=== PATIENT | female | born 1985 | race Caucasian/White ===

== ENCOUNTER 2019-04-06 11:44 | Outpatient (CLI) | payer MEDICAID ==
[2019-04-06 12:16] LABS: APPEARANCE,URINE SLIGHTLY-CLOUDY; BILIRUBIN,URINE NEGATIVE (NEGATIVE); COLOR,URINE YELLOW; GLUCOSE, URINE NEGATIVE (NEGATIVE); KETONES,URINE NEGATIVE (NEGATIVE); LEUKOCYTE ESTERASE,URINE TRACE (NEGATIVE); NITRITE,URINE NEGATIVE (NEGATIVE); PROTEIN,URINE 30 mg/dL (NEGATIVE); URINE SPECIFIC GRAVITY 1.016; UROBILINOGEN,URINE NEGATIVE mg/dL (<2.0)
[2019-04-06] MEDS ORDERED: RINGERS SOLUTION,LACTATED 1,000 ML IV ONE (12:27)
[2019-04-06 12:32] LABS: URINE AMPHETAMINES SCREEN NEGATIVE; URINE BARBITURATES SCREEN NEGATIVE; URINE BENZODIAZEPINES SCREEN NEGATIVE; URINE COCAINE SCREEN NEGATIVE; URINE MARIJUANA (THC) SCREEN NEGATIVE; URINE METHADONE SCREEN NEGATIVE; URINE PHENCYCLIDINE SCREEN NEGATIVE
--- NOTE | 2019-04-06 14:28 | Non Stress Test Report ---
Non Stress Test Datetime Report Generated by CPN: 04/06/2019 14:28 DEMOGRAPHIC EGA NST: 37.2 INDICATION Indication for Study: Ordered by Provider Indication for Study (NST) Other: LC VITAL SIGNS Temperature - NST: 97.9 Pulse - NST: 81 RESP - NST: 16 NBPSYS NST: 122 NBPDIA NST: 71 MONITORING Monitor Explained: Monitor Explained; Test Explained; Patient Verbalized Understanding Time on Monitor: 04/06/2019 12:00 Time off Monitor: 04/06/2019 14:12 NST Duration: 132 NST INTERVENTIONS NST Interventions: IV Fluids Physician Notified NST: A Quiroz CNM BABY A: [id number] BABY A Movement : Present Contraction Frequency : irritability FHR Baseline : 140 Accelerations : 15X15 Decelerations : None Variability : Moderate 6-25bpm NST Review: Meets Criteria for Reactive NST NST Review and Verified By : R Aquiles RN NST Results: Reactive NST COMMENTS NST Comments: provider on unit reviewing entire fht strip NST REPORT Report Trigger: Send Report
== END 2019-04-06 14:21 | disposition home or self-care (01) ==
LOC: LC 11:44
PROVIDERS: ATTEND Obstetrics & Gynecology
PROC: 4A1HXCZ Monitoring of Products of Conception, Cardiac Rate, External Approach (ICD-10-PCS; principal; 2019-04-06)
DX: O47.1 False labor at or after 37 completed weeks of gestation (principal); Z3A.37 37 weeks gestation of pregnancy
CPT/HCPCS: 59025; 80307; 81005

== ENCOUNTER 2019-04-22 09:22 | Inpatient (IN) | payer MEDICAID ==
[2019-04-22] MEDS ORDERED: MISOPROSTOL 0.2 MG TABLET ONE (09:33)
[2019-04-22] MEDS ORDERED: OXYTOCIN 10 UNIT/ML VIAL ONE (09:33)
[2019-04-22] MEDS ORDERED: OXYTOCIN/NORMAL SALINE 20 UNIT/1,000 ML RTUINJ ONE (09:33)
[2019-04-22] MEDS ORDERED: LIDOCAINE 1% INJ-PF (10 MG/ML) 30 ML SDV ONE (09:33)
[2019-04-22] MEDS ORDERED: RINGERS SOLUTION,LACTATED 1,000 ML IV ONE (09:38)
[2019-04-22] MEDS ORDERED: RINGERS SOLUTION,LACTATED 1,000 ML IV PRN (09:38)
[2019-04-22] MEDS ORDERED: MISOPROSTOL 0.2 MG TABLET PR ONE (10:05)
--- NOTE | 2019-04-22 10:10 | Admission Physical ---
Datetime Report Generated by CPN: 04/22/2019 10:10 CURRENT ADMISSION Chief Complaint: Uterine Contractions Indication for Induction: Not Applicable Admit Impression : Term, Intrauterine Admit Plan: Initiate Labor Protocol ALLERGIES Medication Allergies: No Medication Allergies: No Known Allergies (04/22/2019) Latex: No Latex Allergies Food Allergies: none Environmental Allergies: none OBSTETRICAL HISTORY EDC: 04/25/2019 00:00 : 3 Para: 2 Livin Gestational Diabetes: No Rh Sensitization: No Incompetent Cervix: No DENISE: No Infertility: No ART Treatment: No Uterine Anomaly: No IUGR: No Hx Previous C/S: No Macrosomia: No Hx Loss/Stillborn: No PIH: Yes Hx : No Placenta Previa/Abruption: No Depression/PP Depression: No PTL/PROM: No Post Hemorrhage: No Current Procedures: Ultrasound Obstetrical History Comments: G1- pre e G2- G3- current SEE RECORDS Alcohol: No Marijuana : No Cocaine: No Other Illicit Drugs: No Cigarettes: Former Smoker. 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 INFECTIOUS HISTORY Gonorrhea: No Genital Herpes: No Chlamydia: No Tuberculosis: No Syphilis: No Hepatitis: No HIV/AIDS Exposure: No Rash or Viral Illness: No HPV: No PHYSICAL EXAM General: Normal HEENT: Normal Neurologic: Normal Thyroid: Normal Heart: Normal Lungs: Normal Breast: Deferred Back: Normal Abdomen: Normal Genitourinary Exam: Normal Extremities: Normal DTRs: Normal Pelvic Type: Adequate FETUS A EGA: 39.4 PLANS FOR LABOR AND DELIVERY Labor and Delivery: None Pain Management: Epidural Feeding Preference: Both Benefit of Breast Feed Discussed: Yes Circumcision: N/A INFORMED CONSENT Signature: with User ID: [email or web address]
[2019-04-22 10:46] LABS: APPEARANCE,URINE CLEAR; BILIRUBIN,URINE NEGATIVE (NEGATIVE); COLOR,URINE YELLOW; GLUCOSE, URINE NEGATIVE (NEGATIVE); KETONES,URINE NEGATIVE (NEGATIVE); LEUKOCYTE ESTERASE,URINE NEGATIVE (NEGATIVE); NITRITE,URINE NEGATIVE (NEGATIVE); PROTEIN,URINE NEGATIVE (NEGATIVE); UROBILINOGEN,URINE NEGATIVE mg/dL (<2.0)
[2019-04-22 11:03] LABS: URINE AMPHETAMINES SCREEN NEGATIVE; URINE BARBITURATES SCREEN NEGATIVE; URINE BENZODIAZEPINES SCREEN NEGATIVE; URINE COCAINE SCREEN NEGATIVE; URINE MARIJUANA (THC) SCREEN NEGATIVE; URINE METHADONE SCREEN NEGATIVE; URINE PHENCYCLIDINE SCREEN NEGATIVE
[2019-04-22 11:31] LABS: ABSOLUTE LYMPHOCYTES (AUTO) 1.2 10^3/uL (0.5-4.7); ABSOLUTE MONOCYTES (AUTO) 0.3 10^3/uL (0.1-1.4); ABSOLUTE NEUT (AUTO) 9.7 10^3/uL (1.7-8.2); BASOPHILS % (AUTO) 0.2 % (0-2); EOSINOPHILS % (AUTO) 0.3 % (0-6); HEMATOCRIT 31.5 % (36.0-47.0); HEMOGLOBIN 10.6 g/dL (12.0-15.5); LYMPHOCYTES % (AUTO) 10.3 % (13-45); MEAN CORPUSCULAR HEMOGLOBIN 29.1 pg (27.0-33.4); MEAN CORPUSCULAR HGB CONC 33.6 g/dL (32.0-36.0); MEAN CORPUSCULAR VOLUME 87 fl (80-97); MONOCYTES % (AUTO) 2.9 % (3-13); PLATELET COUNT 177 10^3/uL (150-450); RED BLOOD COUNT 3.64 10^6/uL (3.72-5.28); RED CELL DISTRIBUTION WIDTH 14.7 % (11.5-14.0); SEGMENTED NEUTROPHILS % (AUTO) 86.3 % (42-78); TOTAL CELLS COUNTED % (AUTO) 100 %; WHITE BLOOD COUNT 11.2 10^3/uL (4.0-10.5)
[2019-04-22] MEDS ORDERED: OXYTOCIN/NORMAL SALINE 1,000 ML IV PRN (13:06)
[2019-04-22] MEDS ORDERED: DIPH/PERTUSS(ACELL)/TETANUS VAC/PF 0.5 ML SYR (>=10YO) IM PRN (13:06)
[2019-04-22] MEDS ORDERED: MEASLES,MUMPS&RUBELLA VACC/PF 0.5 ML VIAL SUBCUT PRN (13:06)
[2019-04-22] MEDS ORDERED: ZOLPIDEM TARTRATE 5 MG TABLET PO PRN (13:06)
[2019-04-22] MEDS ORDERED: ACETAMINOPHEN WITH CODEINE #3 TABLET PO PRN (13:06)
[2019-04-22] MEDS ORDERED: DIBUCAINE 1% OINTMENT 56 GM TP PRN (13:06)
[2019-04-22] MEDS ORDERED: BENZOCAINE/MENTHOL AEROSOL SPRAY 56 ML TOP PRN (13:06)
--- NOTE | 2019-04-22 13:17 | Delivery Summary ---
Del Sum A-C Datetime Report Generated by CPN: 04/22/2019 13:17 DELIVERY PERSONNEL DELIVERY PERSONNEL: [id number] Delivery Doctor:: Tree Chow MD Labor and Delivery Nurse:: Pau Kwan RNwheel assembler Nurse:: JONATHAN Varghese Nursery Nurse:: James Martin RN Student Observers:: SN missy Tabares [facility] Systems Architect/PIPE INSTALLER: Rylee David CNA II Additional Personnel: : madd MATERNAL INFORMATION Delivery Anesthesia: None Medications After Delivery: Pitocin Bolus-Please Comment Meds After Delivery Comment: Pitocin 20 units in 1000 ml nss open for bolus after delivery of placenta Delivery QBL: 100 Maternal Complications: Precipitous Labor (<3hrs) LABOR SUMMARY EDC: 04/25/2019 00:00 No. Babies in Womb: 1 Attempted: No Labor Anesthesia: None LABOR INFORMATION Reason for Induction: Not Applicable Onset of Labor: 04/22/2019 07:30 Complete Dilatation: 04/22/2019 09:47 Oxytocin: N/A Group B Beta Strep: negative Antibiotics # of Doses: 0 MEMBRANES Membranes Rupture Method: Spontaneous Rupture of Membranes: 04/22/2019 09:56 Length of Rupture (hr): 0.08 Amniotic Fluid Color: Clear Amniotic Fluid Amount: Moderate Amniotic Fluid Odor: None STAGES OF LABOR Stage 1 hr: 2 Stage 1 min: 17 Stage 2 hr: 0 Stage 2 min: 14 Stage 3 hr: 0 Stage 3 min: 3 Total Time in Labor hr: 2 Total Time in Labor min: 34 VAGINAL DELIVERY Episiotomy: None Laceration #1: None Laceration Extension #1: N/A Laceration Repair: Not Applicable Sponge Count Correct: N/A Sharps Count Correct: N/A CSECTION DELIVERY Primary Indication: N/A Secondary Indication: N/A CSection Incidence: N/A Labor: N/A Elective: N/A CSection Incision: N/A BABY A INFORMATION Delivery Date/Time: 04/22/2019 10:01 Method of Delivery: Vaginal Born in Route : No : N/A Forceps: N/A Vacuum Extraction: N/A Shoulder Dystocia : No PRESENTATION/POSITION BABY A Presentation: Cephalic Cephalic Presentation: Vertex Vertex Position: Right Occipital Anterior Breech Presentation: N/A PLACENTA INFORMATION BABY A Placenta Delivery Time : 04/22/2019 10:04 Placenta Method of Delivery: Spontaneous Placenta Status: Delivered SCORES BABY A Heart Rate 1 min: >100 bpm Resp Effort 1 min: Slow, Irregular Reflex Irritability 1 min: Cough or Sneeze or Pulls Away Muscle Tone 1 min: Active Motion Color 1 min: Body [place], Extremities Blue SCORE 1 MIN: 8 Heart Rate 5 min: >100 bpm Resp Effort 5 min: Good Cry Reflex Irritability 5 min: Cough or Sneeze or Pulls Away Muscle Tone 5 min: Active Motion Color 5 min: Body [place], Extremities Blue SCORE 5 MIN: 9 INFANT INFORMATION BABY A Gestational Age at Delivery: 39.4 Gestational Status: Full Term- 39- 40.6 Weeks Infant Outcome : Liveborn Infant Condition : Stable Sex: Female IDENTIFICATION BABY A Verification Date/Time: 04/22/2019 10:19 ID Band Number: [id number] Mother's Name Verified: Yes Infant RN Verifying : Sera Camp RNC Additional Verifying Personnel: Pau Kwan RN WEIGHT/LENGTH BABY A Infant Birthweight (gm): 3131 Infant Weight (lb): 6 Weight (oz): 14 Infant Length (in): 21.00 Length (cm): 53.34 CORD INFORMATION BABY A No. Cord Vessels: 3 Nuchal Cord : N/A Cord Blood Taken: Yes-For Storage (Mom's Blood type +) Suction: None ASSESSMENT BABY A Complications: None Physical Findings at Delivery: Within Normal Limits Respirations: Appears Normal Application Tester/ALS Called : No Care By: Regine Martin RN Transferred To: Remains with Mother BABY B INFORMATION : N/A SIGNATURES Signature: with User ID: [email or web address]
[2019-04-22] MEDS: IBUPROFEN 800 MG TABLET PO SCH ×2 (14:07→22:22)
[2019-04-22] MEDS: DOCUSATE SODIUM 100 MG CAPSULE PO SCH (18:49)
[2019-04-23] MEDS: IBUPROFEN 800 MG TABLET PO SCH ×3 (05:48→22:00)
[2019-04-23 08:58] LABS: HEMATOCRIT 30.2 % (36.0-47.0); HEMOGLOBIN 10.1 g/dL (12.0-15.5); MEAN CORPUSCULAR HEMOGLOBIN 29.3 pg (27.0-33.4); MEAN CORPUSCULAR HGB CONC 33.5 g/dL (32.0-36.0); MEAN CORPUSCULAR VOLUME 87 fl (80-97); PLATELET COUNT 167 10^3/uL (150-450); RED BLOOD COUNT 3.46 10^6/uL (3.72-5.28); RED CELL DISTRIBUTION WIDTH 14.9 % (11.5-14.0); WHITE BLOOD COUNT 9.2 10^3/uL (4.0-10.5)
[2019-04-23] MEDS: PRENATAL VITAMIN W DHA CAPSULE PO SCH (09:55)
[2019-04-23] MEDS: DOCUSATE SODIUM 100 MG CAPSULE PO SCH ×2 (09:55→17:36)
[2019-04-23] MEDS: SENNOSIDES/DOCUSATE 8.6-50 MG 1 EACH TABLET PO SCH (09:55)
[2019-04-23] MEDS: ACETAMINOPHEN WITH CODEINE #3 TABLET PO PRN ×2 (09:56→21:31)
--- NOTE | 2019-04-23 17:21 | PDOC PROGRESS REPORT ---
Subjective-OB Progress Note for:: 04/23/19 Subjective: reports bleeding slowing, pain controlled with current meds, denies needs Physical Exam (OB) Vital Signs: Temp Pulse Resp BP Pulse Ox 97.7 F 57 L 14 110/67 97 04/23/19 07:28 04/23/19 07:28 04/23/19 07:28 04/23/19 07:28 04/23/19 07:28 Intake & Output 04/22/19 04/23/19 04/24/19 06:59 06:59 06:59 Intake Total 600 Balance 600 Weight 83.3 kg - Abdomen Description: Soft, Round Hernia Present: No Fundal Description: Firm, Midline Fundal Height: u/u - u/2 - Abdominal Distension: No distension Tenderness: Nontender - Extremities Lower extremities: Joseph's sign - neg Calf: Normal, Nontender Objective-Diagnostic Laboratory: 04/23/19 07:35 04/23/19 07:35 WBC 9.2 RBC 3.46 L Hgb 10.1 L Hct 30.2 L MCV 87 MCH 29.3 MCHC 33.5 RDW 14.9 H Plt Count 167 Assessment and Plan(PN) - Assessment and Plan (1) Active labor at term Is this a current diagnosis for this admission?: Yes (2) Bipolar disorder Is this a current diagnosis for this admission?: Yes (3) Normal vaginal delivery Is this a current diagnosis for this admission?: Yes - Time Spent with Patient Time with patient: Less than 15 minutes Medications reviewed and adjusted accordingly: Yes - Disposition Anticipated Discharge: Home Within: within 24 hours
[2019-04-24] MEDS: IBUPROFEN 800 MG TABLET PO SCH (05:45)
[2019-04-24] MEDS: PRENATAL VITAMIN W DHA CAPSULE PO SCH (09:10)
[2019-04-24] MEDS: DOCUSATE SODIUM 100 MG CAPSULE PO SCH (09:10)
[2019-04-24] MEDS: SENNOSIDES/DOCUSATE 8.6-50 MG 1 EACH TABLET PO SCH (09:10)
[2019-04-24 09:46] VITALS: BP 130/80
--- NOTE | 2019-04-24 10:01 | PDOC DISCHARGE SUMMARY ---
Impression - Admit/DC Date/PCP Admission Date/Primary Care Provider: 04/22/19 09:38 SUSHMA MCMAHON MD Discharge Date: 04/24/19 - PP Day #2, doing well, , A+, Rubella immune - Discharge Diagnosis (1) Normal course Is this a current diagnosis for this admission?: Yes (2) Active labor at term Is this a current diagnosis for this admission?: Yes (3) Bipolar disorder Is this a current diagnosis for this admission?: Yes (4) Normal vaginal delivery Is this a current diagnosis for this admission?: Yes - Additional Information Resuscitation Status: Full Code Discharge Diet: As Tolerated, Regular Discharge Activity: Activity As Tolerated, No Lifting Over 10 Pounds, Pelvic Rest [facility] [[facility]] Prescriptions: Ibuprofen [Motrin 800 mg Tablet] 800 mg PO Q8 #60 tablet Home Medications: Vits96/Iron Fum/Folic [ Tablet] 1 each PO DAILY 04/06/19 Ibuprofen [Motrin 800 mg Tablet] 800 mg PO Q8 #60 tablet 04/24/19 HPI Reason(s) for Admission: Onset of Labor Procedures: Ultrasound Intrapartum Procedure(s): Spontaneous Vaginal Delivery Results Laboratory Results: WBC 9.2 10^3/uL (4.0-10.5) 04/23/19 07:35 RBC 3.46 10^6/uL (3.72-5.28) L 04/23/19 07:35 Hgb 10.1 g/dL (12.0-15.5) L 04/23/19 07:35 Hct 30.2 % (36.0-47.0) L 04/23/19 07:35 MCV 87 fl (80-97) 04/23/19 07:35 MCH 29.3 pg (27.0-33.4) 04/23/19 07:35 MCHC 33.5 g/dL (32.0-36.0) 04/23/19 07:35 RDW 14.9 % (11.5-14.0) H 04/23/19 07:35 Plt Count 167 10^3/uL (150-450) 04/23/19 07:35 Lymph % (Auto) 10.3 % (13-45) L 04/22/19 11:14 [place] % (Auto) 2.9 % (3-13) L 04/22/19 11:14 Eos % (Auto) 0.3 % (0-6) 04/22/19 11:14 Baso % (Auto) 0.2 % (0-2) 04/22/19 11:14 Absolute Neuts (auto) 9.7 10^3/uL (1.7-8.2) H 04/22/19 11:14 Absolute Lymphs (auto) 1.2 10^3/uL (0.5-4.7) 04/22/19 11:14 Absolute Monos (auto) 0.3 10^3/uL (0.1-1.4) 04/22/19 11:14 Absolute Eos (auto) 0.0 10^3/uL (0.0-0.6) 04/22/19 11:14 Absolute Basos (auto) 0.0 10^3/uL (0.0-0.2) 04/22/19 11:14 Seg Neutrophils % 86.3 % (42-78) H 04/22/19 11:14 Urine Color YELLOW 04/22/19 10:10 Urine Appearance CLEAR 04/22/19 10:10 Urine pH 8.0 (5.0-9.0) 04/22/19 10:10 Ur Specific [place] 1.010 04/22/19 10:10 Urine Protein NEGATIVE mg/dL (NEGATIVE) 04/22/19 10:10 Urine Glucose (UA) NEGATIVE mg/dL (NEGATIVE) 04/22/19 10:10 Urine Ketones NEGATIVE mg/dL (NEGATIVE) 04/22/19 10:10 Urine Blood SMALL (NEGATIVE) H 04/22/19 10:10 Urine Nitrite NEGATIVE (NEGATIVE) 04/22/19 10:10 Urine Bilirubin NEGATIVE (NEGATIVE) 04/22/19 10:10 Urine Urobilinogen NEGATIVE mg/dL (<2.0) 04/22/19 10:10 Ur Leukocyte Esterase NEGATIVE (NEGATIVE) 04/22/19 10:10 Urine Ascorbic Acid NEGATIVE (NEGATIVE) 04/22/19 10:10 Urine Opiates Screen NEGATIVE 04/22/19 10:10 Urine Methadone Screen NEGATIVE 04/22/19 10:10 Ur Barbiturates Screen NEGATIVE 04/22/19 10:10 Ur Phencyclidine Scrn NEGATIVE 04/22/19 10:10 Ur Amphetamines Screen NEGATIVE 04/22/19 10:10 U Benzodiazepines Scrn NEGATIVE 04/22/19 10:10 Urine Cocaine Screen NEGATIVE 04/22/19 10:10 U Marijuana (THC) Screen NEGATIVE 04/22/19 10:10 RPR NONREACTIVE (NONREACTIVE) 04/22/19 11:14 Blood Type A POSITIVE 04/22/19 11:14 Antibody Screen NEGATIVE 04/22/19 11:14 Plan Health Concerns: none Plan of Treatment: d/c home, pt to f/u in 4 wks for PP check at [facility]
== END 2019-04-24 12:20 | disposition home or self-care (01) | DRG 807 ==
LOC: LC 09:22 → LR 09:38 → 2S 13:09
PROVIDERS: ADMIT Obstetrics & Gynecology Gynecology; ATTEND Obstetrics & Gynecology Gynecology
PROC: 10E0XZZ Delivery of Products of Conception, External Approach (ICD-10-PCS; principal; 2019-04-22)
DX: O62.3 Precipitate labor (principal); Z37.0 Single live birth; F31.9 Bipolar disorder, unspecified; Z3A.39 39 weeks gestation of pregnancy
CPT/HCPCS: 36415; 80307; 81005; 85025; 85027; 86592; 86850; 86900; 86901; J2590; J3490